=== PATIENT | male | born 1985 | race Caucasian/White ===

== ENCOUNTER 2016-12-12 15:09 | Emergency (ER) | payer MEDICAID ==
[~2016-12-12] VITALS: Ht 180.3 cm; Wt 110.0 kg
[~2016-12-12 15:09] MED LIST: ZOFR4TAB3 PO
[2016-12-12 15:13] VITALS: BP 122/77; PULSE 95; RESP 14; TEMP 97.9; O2SAT 99
[2016-12-12] MEDS ORDERED: OMEP20TA PO (16:30)
--- NOTE | 2016-12-12 16:44 | PD ---
HPI Chief Complaint: Skin Problem Time Seen by Provider: 16:44 Travel History International Travel<30 days: No Contact w/Intl Traveler<30days: No Traveled to known affect area: No History of Present Illness HPI 31 year old male presents to the emergency department for evaluation of bilateral leg pain/erythema. Patient reports bilateral leg pain/edema for 1 week. He was at the beach on Friday and then he noticed erythema yesterday. The erythema stops at sandal line (he was wearing sandals at the beach). However, the patient is concerned that the erythema/pain is not just a sunburn. He reports a history of pancreatitis. He states he does not drink alcohol anymore. No chest pain. No abdominal pain. No nausea, vomiting, diarrhea. No fevers. She states the pain is with walking only. He has no pain when lying flat. PFSH Past Medical History High Cholesterol: Yes Gastrointestinal Disorders: Yes Pancreatitis: Yes Social History Alcohol Use: No Tobacco Use: No Substance Use: No Allergies-Medications (Allergen,Severity, Reaction): Coded Allergies: No Known Allergies (Unverified , 12/12/16) Reported Meds & Prescriptions Reported Meds & Active Scripts Active Reported Omeprazole 20 Mg Tab 20 Mg PO DAILY Review of Systems Except as stated in HPI: all other systems reviewed are Neg Physical Exam Narrative GENERAL: Well-nourished, well-developed male patient, afebrile. SKIN: Focused skin assessment warm/dry. Patient is erythema to the bilateral feet and lower legs. This erythema does follow the line of his sandals. HEAD: Normocephalic. Atraumatic. EYES: No scleral icterus. No injection or drainage. NECK: Supple, trachea midline. No JVD or lymphadenopathy. CARDIOVASCULAR: Regular rate and rhythm without murmurs, gallops, or rubs. Bilateral pedal pulses are 2+. RESPIRATORY: Breath sounds equal bilaterally. No accessory muscle use. Lungs sounds are clear to auscultation. GASTROINTESTINAL: Abdomen soft, non-tender, nondistended. MUSCULOSKELETAL: No cyanosis. 1+ edema to bilateral feet and ankles. BACK: Nontender without obvious deformity. No CVA tenderness. Data Data Last Documented VS Vital Signs Date Time Temp Pulse Resp B/P Pulse Ox O2 Delivery O2 Flow Rate FiO2 12/12/16 18:07 88 18 122/75 98 Room Air 12/12/16 15:13 97.9 Orders Iv Access Insert/Monitor (12/12/16 16:43) Complete Blood Count With Diff (12/12/16 16:43) Basic Metabolic Panel (Bmp) (12/12/16 16:43) Us Leg Venous Doppler Bilat (12/12/16 ) Ketorolac Inj (Toradol Inj) (12/12/16 18:30) Labs Laboratory Tests Test 12/12/16 16:55 White Blood Count 7.3 TH/MM3 Red Blood Count 5.41 MIL/MM3 Hemoglobin 13.9 GM/DL Hematocrit 42.5 % Mean Corpuscular Volume 78.6 FL Mean Corpuscular Hemoglobin 25.8 PG Mean Corpuscular Hemoglobin 32.8 % Concent Red Cell Distribution Width 14.9 % Platelet Count 335 TH/MM3 Mean Platelet Volume 7.0 FL Neutrophils (%) (Auto) 58.6 % Lymphocytes (%) (Auto) 27.3 % Monocytes (%) (Auto) 9.4 % Eosinophils (%) (Auto) 3.6 % Basophils (%) (Auto) 1.1 % Neutrophils # (Auto) 4.2 TH/MM3 Lymphocytes # (Auto) 2.0 TH/MM3 Monocytes # (Auto) 0.7 TH/MM3 Eosinophils # (Auto) 0.3 TH/MM3 Basophils # (Auto) 0.1 TH/MM3 CBC Comment DIFF FINAL Differential Comment Sodium Level 139 MEQ/L Potassium Level 4.4 MEQ/L Chloride Level 105 MEQ/L Carbon Dioxide Level 29.5 MEQ/L Anion Gap 5 MEQ/L Blood Urea Nitrogen 13 MG/DL Creatinine 1.08 MG/DL Estimat Glomerular Filtration 80 ML/MIN Rate Random Glucose 67 MG/DL Calcium Level 8.8 MG/DL [facility] Medical Decision Making Medical Screen Exam Complete: Yes Emergency Medical Condition: Yes Medical Record Reviewed: Yes Interpretation(s) Last Impressions Lower Extremity Ultrasound 12/12/16 0000 Signed Impressions: Service Date/Time: November 17:20 - CONCLUSION: 1. No DVT identified. Adrian Cervantes MD Differential Diagnosis Sunburn versus cellulitis versus DVT Narrative Course 31-year-old male presents to the emergency department for evaluation of bilateral ankle pain and swelling for 1 week as well as erythema that started yesterday. CBC, BMP, venous Doppler ultrasound of the bilateral lower extremities are ordered and pending. CBC shows normal WBC of 7.3, no acute abnormality. BMP shows no acute abnormality, patient has hypoglycemia 67. US shows no DVT. Patient is given Toradol 30 mg IV for pain. Physical exam is consistent with sunburn is erythema stops at the pao of his sandal. It did occur after being at the beach in the sun. I did reassure patient. There is no evidence of acute infection. White blood cell count is normal with no elevated neutrophil count. Patient is given juice and crackers for blood glucose of 67. Patient instructed to elevate his legs. He is to take Tylenol ibuprofen for pain and follow with her primary care physician. He is instructed to return for any acute worsening symptoms including fever, worsening erythema, worsening pain. He verbalizes agreement and understanding. The patient was discharged in stable condition with instructions, including return instructions and follow up instructions. Diagnosis Primary Impression: Superficial burn Referrals: Primary Care Physician call for appointment Patient Instructions: General Instructions, Sunburn (ED) Additional Instructions: Take ibuprofen as instructed as needed with food for pain. Follow-up with your primary care physician. Return to the emergency department for any acute worsening of symptoms. Med/Other Pt SpecificInfo: Prescription(s) given Scripts Ibuprofen 600 Mg [id number] Mg PO TID PRN (PAIN SCALE 1 TO 10) #21 TAB Ref 0 Prov:Asia Blakely 12/12/16 Disposition: 01 DISCHARGE HOME Condition: Stable Asia Blakely Dec 12, 2016 16:44
[2016-12-12 17:11] LABS: AUTOMATED NEUTROPHIL # 4.2 TH/MM3 (1.8-7.7); BASOPHIL # 0.1 TH/MM3 (0-0.2); BASOPHIL % 1.1 % (0.0-2.0); EOSINOPHIL # 0.3 TH/MM3 (0-0.4); EOSINOPHIL % 3.6 % (0.0-4.0); HEMATOCRIT 42.5 % (39.0-51.0); HEMO FLAGS DIFF FINAL; LYMPH % 27.3 % (9.0-44.0); MEAN CELL VOLUME 78.6 FL (80.0-100.0); MEAN CORPUSCULAR HEMOGLOBIN 25.8 PG (27.0-34.0); MEAN CORPUSCULAR HGB CONC 32.8 % (32.0-36.0); MONO % 9.4 % (0.0-8.0); NEUT % 58.6 % (16.0-70.0); PLATELET COUNT 335 TH/MM3 (150-450); RED BLOOD COUNT 5.41 MIL/MM3 (4.50-5.90); RED CELL DISTRIBUTION WIDTH 14.9 % (11.6-17.2); WHITE BLOOD COUNT 7.3 TH/MM3 (4.0-11.0)
[2016-12-12 17:26] LABS: BICARBONATE 29.5 MEQ/L (21.0-32.0); POTASSIUM 4.4 MEQ/L (3.5-5.1)
--- NOTE | 2016-12-12 17:59 | RADRPT ---
EXAM DATE/TIME: 12/12/2016 17:20 [facility] COMPARISON: No previous studies available for comparison. INDICATIONS : Bilateral leg pain and redness. MEDICAL HISTORY : Hypercholesterolemia. Pancreatitis. SURGICAL HISTORY : None. ENCOUNTER: Initial ACUITY: 1 week PAIN SCORE: 6/10 LOCATION: Bilateral legs. TECHNIQUE: Venous ultrasound of the left and right leg was performed from the inguinal ligament to the proximal calf. Real-time, color Doppler and spectral tracing, compression and augmentation techniques were us ed. FINDINGS: RIGHT LEG: There is normal compressibility of the deep venous system from the inguinal region to the proximal ca lf. No echogenic clot is seen in the lumen of the common femoral, femoral, popliteal, and posterior tibial veins. There is a normal response of the venous system to proximal and distal augmentation an d respiration. LEFT LEG: There is normal compressibility of the deep venous system from the inguinal region to the proximal ca lf. No echogenic clot is seen in the lumen of the common femoral, femoral, popliteal, and posterior tibial veins. There is a normal response of the venous system to proximal and distal augmentation an d respiration. CONCLUSION: 1. No DVT identified. Adrian Cervantes MD on December 12, 2016 at 17:50 Board Certified Radiologist. This report was verified electronically.
[2016-12-12 18:07] VITALS: BP 122/75; PULSE 78; PULSE 88; RESP 18; O2SAT 98
[2016-12-12] MEDS ORDERED: IBUP-232 PO (18:24)
[2016-12-12] MEDS ORDERED: KETOROLAC TROMETHAMINE 30 MG/ML (IVP) VIAL IV PUSH ONE (18:30)
== END 2016-12-12 18:41 | disposition home or self-care (01) ==
LOC: NEPD 15:09
DX: L55.9 Sunburn, unspecified (principal); M79.605 Pain in left leg; M79.604 Pain in right leg
CPT/HCPCS: 80048; 85025; 93970; 96374; 99285; J1885

== ENCOUNTER 2017-02-06 14:05 | Emergency (ER) | payer OTHER, MEDICAID ==
[~2017-02-06] VITALS: Ht 177.8 cm; Wt 106.0 kg
[~2017-02-06 14:05] MED LIST changes: +IBUP-232 PO; +OMEP20TA PO; -ZOFR4TAB3 PO
[2017-02-06 14:08] VITALS: BP 135/74; PULSE 107; RESP 16; TEMP 98.2; O2SAT 99
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
[2017-02-06] MEDS ORDERED: KETOROLAC TROMETHAMINE 60 MG/2 ML (IM) VIAL IM ONE (15:15)
[2017-02-06] MEDS ORDERED: ORPHENADRINE INJ 60 MG/2 ML AMP IM ONE (15:15)
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
[2017-02-06] MEDS ORDERED: IBUP800T23 PO (16:30)
[2017-02-06] MEDS ORDERED: ROBA500T PO (16:30)
== END 2017-02-06 17:16 | disposition home or self-care (01) ==
LOC: NEPK 14:05
DX: S23.9XXA Sprain of unspecified parts of thorax, initial encounter (principal); S39.012A Strain of muscle, fascia and tendon of lower back, initial encounter; E78.00 Pure hypercholesterolemia, unspecified; K85.90 Acute pancreatitis without necrosis or infection, unspecified; V49.40XA Driver injured in collision with unspecified motor vehicles in traffic accident, initial encounter
CPT/HCPCS: 72072; 72100; 96372; 99284; J1885; J2360

== ENCOUNTER 2017-02-16 16:15 | Emergency (ER) | payer MEDICAID, OTHER ==
[~2017-02-16] VITALS: Ht 177.8 cm; Wt 106.5 kg
[~2017-02-16 16:15] MED LIST changes: -IBUP-232 PO; +IBUP800T23 PO; -OMEP20TA PO; +ROBA500T PO
[2017-02-16 16:16] VITALS: BP 126/80; PULSE 96; RESP 20; TEMP 98; O2SAT 99
[2017-02-16] MEDS ORDERED: OMEP20TA PO (16:36)
[2017-02-16] MEDS ORDERED: ORPHENADRINE INJ 60 MG/2 ML AMP IM ONE (17:30)
[2017-02-16] MEDS ORDERED: MORPHINE SULFATE 8 MG/ML INJ IM ONE (17:30)
[2017-02-16] MEDS ORDERED: KETOROLAC TROMETHAMINE 60 MG/2 ML (IM) VIAL IM ONE (17:30)
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
--- NOTE | 2017-02-16 18:08 | RADRPT ---
EXAM DATE/TIME: 02/16/2017 17:37 [facility] COMPARISON: CT THORAX W/O CONTRAST, February 16, 2017, 17:41. INDICATIONS : Right upper back pain today. ORAL CONTRAST: No oral contrast ingested. RADIATION DOSE: 5.6 CTDIvol (mGy) ; Combined studies - Thorax/Abdomen/Pelvis MEDICAL HISTORY : Pancreatitis. SURGICAL HISTORY : None. ENCOUNTER: Initial ACUITY: 1 day PAIN SCALE: 7/10 LOCATION: Right upper back TECHNIQUE: Volumetric scanning of the abdomen and pelvis was performed. Using automated exposure control and ad justment of the mA and/or kV according to patient size, radiation dose was kept as low as reasonably achievable to obtain optimal diagnostic quality images. DICOM format image data is available electro nically for review and comparison. FINDINGS: LOWER LUNGS: The visualized lower lungs are clear. LIVER: The liver is enlarged. Diffuse fatty infiltration of the liver is noted. There is no focal mass. Ther e is no dilation of the biliary tree. The gallbladder is unremarkable. No calcified gallstones. SPLEEN: Normal size without lesion. PANCREAS: Within normal limits. KIDNEYS: Normal in size and shape. There is no mass, stone, or hydronephrosis. ADRENAL GLANDS: Within normal limits. VASCULAR: There is no aortic aneurysm. BOWEL/MESENTERY: Uncomplicated colonic diverticulosis is noted. The appendix is normal. ABDOMINAL WALL: Within normal limits. RETROPERITONEUM: There is no lymphadenopathy. BLADDER: No wall thickening or mass. REPRODUCTIVE: Within normal limits. INGUINAL: There is no lymphadenopathy or hernia. MUSCULOSKELETAL: Within normal limits for patient age. CONCLUSION: 1. Enlarged fatty liver. 2. Uncomplicated colonic diverticulosis. Cory Zacarias MD on February 16, 2017 at 18:03 Board Certified Radiologist. This report was verified electronically.
--- NOTE | 2017-02-16 18:11 | RADRPT ---
EXAM DATE/TIME: 02/16/2017 17:41 [facility] COMPARISON: No previous studies available for comparison. INDICATIONS : Right upper back pain today. RADIATION DOSE: 5.6 CTDIvol (mGy) ; Combined studies MEDICAL HISTORY : Pancreatitis. SURGICAL HISTORY : None. ENCOUNTER: Initial ACUITY: 1 day PAIN SCALE: 7/10 LOCATION: Right upper back TECHNIQUE: Volumetric scanning of the chest was performed. Using automated exposure control and adjustment of t he mA and/or kV according to patient size, radiation dose was kept as low as reasonably achievable to obtain optimal diagnostic quality images. DICOM format image data is available electronically for r eview and comparison. Follow-up recommendations for detected pulmonary nodules are based at a minimum on nodule size and pa tient risk factors according to Fleischner Society Guidelines. FINDINGS: LUNGS: There is no consolidation or pneumothorax. No concerning pulmonary nodule is visualized. PLEURAE: There is no pleural thickening or pleural effusion. MEDIASTINUM: The heart and great vessels demonstrate no acute abnormality. There is no mediastinal or hilar lymph adenopathy. AXILLAE: Within normal limits. No lymphadenopathy. MUSCULOSKELETAL: Within normal limits for patient age. MISCELLANEOUS: The visualized upper abdominal organs demonstrate no acute abnormality. CONCLUSION: No acute disease. Cory Zacarias MD on February 16, 2017 at 18:08 Board Certified Radiologist. This report was verified electronically.
[2017-02-16 18:21] VITALS: BP 130/75; PULSE 89; RESP 17; O2SAT 100
[2017-02-16] MEDS ORDERED: CYCL5TAB PO (18:37)
[2017-02-16] MEDS ORDERED: IBUP-232 PO (18:37)
== END 2017-02-16 19:53 | disposition home or self-care (01) ==
LOC: NEPD 16:15
DX: M62.830 Muscle spasm of back (principal)
CPT/HCPCS: 71250; 74176; 96372; 99285; J1885; J2270; J2360

== ENCOUNTER 2017-09-27 15:29 | Emergency (ER) | payer MEDICAID ==
[~2017-09-27] VITALS: Ht 180.3 cm; Wt 110.0 kg
[~2017-09-27 15:29] MED LIST changes: +CYCL5TAB PO; +IBUP-232 PO; +IBUP1TAB7 PO; -IBUP800T23 PO; +OMEP20TA93 PO
[2017-09-27 15:33] VITALS: BP 155/61; PULSE 93; RESP 16; TEMP 98.5; O2SAT 100
== END 2017-09-27 20:30 | disposition left against medical advice (07) ==
LOC: NED 15:29
DX: M25.521 Pain in right elbow (principal); Z53.21 Procedure and treatment not carried out due to patient leaving prior to being seen by health care provider
CPT/HCPCS: 99281